=== PATIENT | female | born 1995 ===

== ENCOUNTER → 2018-02-26 19:21 | Outpatient (REF) | payer BC, SELFPAY ==
[2018-02-26 19:40] LABS: Alanine Aminotransferase 57 IU/L (9-52); Albumin 4.1 g/dL (3.5-5.0); Albumin Globulin Ratio 1.2 (1.0-2.8); Alkaline Phosphatase 72 U/L (38-126); Aspartate Aminotransferase 34 IU/L (14-36); BUN Creatinine Ratio 23.3 (6-22); Bilirubin Total 0.5 mg/dL (0.2-1.3); Blood Urea Nitrogen 14 mg/dL (7-17); C-Reactive Protein Quant 2.2 mg/dL (<1.0); Calcium 9.6 mg/dL (8.4-10.2); Carbon Dioxide 27 mmol/L (22-32); Chloride 100 mmol/L (98-107); Cholesterol 148 mg/dL (140-199); Estimated Glomerular Filt Rate > 60.0 mL/min (>60); Globulin 3.5 g/dL (1.7-4.1); Glucose 280 mg/dL (70-100); HDL Cholesterol 50 mg/dL (40-60); HEMOLYSIS < 15 (0-50); LDL Cholesterol Calculated 64 mg/dL (<100); Potassium 4.9 mmol/L (3.4-5.1); Sodium 138 mmol/L (137-145); Total Protein 7.6 g/dL (6.3-8.2); Triglycerides 171 mg/dL (35-150)
[2018-02-26 19:45] LABS: Hemoglobin A1C% w Est Avg Glu 11.4 % (4.0-6.0)
[2018-02-26 19:55] LABS: Free T4, Direct Thyroxine 1.11 ng/dL (0.78-2.19)
[2018-02-26 20:04] LABS: Erythrocyte Sedimentation Rate 18 MM/HR (0-20)
[2018-02-26 20:08] LABS: Thyroid Stimulating Hormone 1.53 uIU/mL (0.47-4.68)
[2018-03-01 22:37] LABS: ANA Screen NEGATIVE (Negative); DNA Antibody Crithidia IFA NEGATIVE (Negative); Rheumatoid Factor <14 IU/mL; Sjogren Antiboday SS-A <1.0 NEG AI (<1.0 NEGATIVE); Sjogren Antiboday SS-B <1.0 NEG AI (<1.0 NEGATIVE); Sm Antibody <1.0 NEG AI (<1.0 NEGATIVE); Sm/RNP Antibody <1.0 NEG AI (<1.0 NEGATIVE)
== END ==
LOC: LAB 19:21
PROVIDERS: Visit Provider Naturopath
DX: E11.65 Type 2 diabetes mellitus with hyperglycemia (principal); E78.5 Hyperlipidemia, unspecified; R79.82 Elevated C-reactive protein (CRP)
CPT/HCPCS: 80053; 80061; 83036; 84439; 84443; 84481; 85651; 86038; 86140; 86430